=== PATIENT | female | born 1960 ===

== ENCOUNTER 2017-09-05 07:54 | Emergency (ER) | payer OTHER ==
[2017-09-05 08:09] VITALS: RESP 19
[2017-09-05] MEDS ORDERED: Oxycodone/Acetaminophen 5/325 mg Tab PO STA (09:21)
--- NOTE | 2017-09-05 09:22 | ED PDOC ---
HPI: Trauma/Fall - HPI Time Seen by Provider: 09/05/17 09:12 Chief Complaint (Nursing): Trauma Chief Complaint (Provider): Trauma History Per: Patient Additional Complaint(s): 57 year old female presents to the emergency department with a complaint of right-sided head pain, right shoulder pain, and right hip pain after falling backwards down 3 stairs prior to arrival. States she had head injury. Denies fever, chills, or loss of consciousness. Of note, as per nurse, patient is able to ambulate to the bathroom. Past Medical History Reviewed: Historical Data, Nursing Documentation, Vital Signs Vital Signs: Last Vital Signs Temp 97 F L 09/05/17 08:07 Pulse 90 09/05/17 08:07 Resp 19 09/05/17 08:07 BP 135/95 H 09/05/17 08:07 Pulse Ox 100 09/05/17 08:07 - Medical History PMH: No Chronic Diseases - Surgical History Surgical History: No Surg Hx - Family History Family History: States: Unknown Family Hx - Home Medications Home Medications: Ambulatory Orders Medication Instructions Recorded Acetaminophen with Codeine 1 tab PO Q6H PRN #10 tab 09/05/17 [Tylenol with Codeine No. 3 300 mg-30 mg] - Allergies Allergies/Adverse Reactions: Allergies Allergy/AdvReac Type Severity Reaction Status Date / Time Penicillins Allergy ANAPHYLAXIS Verified 09/05/17 08:07 ketorolac [From Toradol] AdvReac ANAPHYLAXIS Verified 09/05/17 08:07 Review of Systems ROS Statement: Except As Marked, All Systems Reviewed And Found Negative (As per HPI, otherwise negative) Constitutional: Negative for: Fever, Chills, Other (loss of consciousness) Respiratory: Positive for: Other (Right posterior rib pain) Musculoskeletal: Positive for: Shoulder Pain (Right), Other (Right hip) Neurological: Positive for: Headache (Right-sided head pain) Physical Exam - Reviewed Nursing Documentation Reviewed: Yes Vital Signs Reviewed: Yes - Physical Exam Appears: Positive for: Well, No Acute Distress Head Exam: Positive for: ATRAUMATIC, NORMAL INSPECTION (Tenderness to the right scalp. No ecchymosis, edema, or hematoma noted. ) Skin: Positive for: Normal Color, Warm, Dry Eye Exam: Positive for: Normal appearance, EOMI, PERRL Neck: Positive for: Normal, Painless ROM, Supple Cardiovascular/Chest: Positive for: Regular Rate, Rhythm Respiratory: Positive for: Normal Breath Sounds Gastrointestinal/Abdominal: Positive for: Normal Exam, Soft. Negative for: Tenderness Extremity: Positive for: Normal ROM (Small ecchymosis noted distal to elbow with full ROM), Tenderness (Tenderness to the right shoulder, right posterior rib, and right hip. ). Negative for: Deformity, Swelling, Other (No edema, ecchymosis, deformity, or hematoma noted elsewhere. ) Neurologic/Psych: Positive for: Alert, Oriented (x3) - ECG O2 Sat by Pulse Oximetry: 100 (RA) Pulse Ox Interpretation: Normal Medical Decision Making Medical Decision Making: Time: 919 Initial Impression: Multi system trauma status post fall Initial Plan: Percocet 5/325 mg PO Right hip x-ray Right shoulder x-ray Right ribs and chest x-ray Head CT Reevaluation Time: [address] FINDINGS: HEMORRHAGE: No intracranial hemorrhage. BRAIN: No mass effect or edema. No atrophy or chronic microvascular ischemic changes. VENTRICLES: Unremarkable. No hydrocephalus. CALVARIUM: Unremarkable. PARANASAL SINUSES: Complete opacification of the right maxillary sinus with thinning of the sinus [place], likely chronic. Left maxillary sinus mucosal thickening. MASTOID AIR CELLS: Unremarkable as visualized. No inflammatory changes. OTHER FINDINGS: None. IMPRESSION: No acute intracranial pathology. Time: 1015 --Chest and right ribs FINDINGS: RIGHT RIBS: No fracture or focal lesion visualized. LUNGS: Clear. PLEURA: No pneumothorax or pleural fluid. CARDIOVASCULAR: Normal sized heart. No pulmonary vascular congestion. OTHER FINDINGS: None. IMPRESSION: Unremarkable radiographs of the chest and right ribs. No right rib fracture. Time: 1016 Shoulder x-ray FINDINGS: BONES: No acute fracture. JOINTS: Unremarkable. SOFT TISSUES: Normal. OTHER FINDINGS: None. IMPRESSION: No demonstrated fracture or dislocation. Time: 1022 --Right hip FINDINGS: BONES: No acute fracture. JOINTS: Normal. SOFT TISSUES: Normal. OTHER FINDINGS: None. IMPRESSION: No demonstrated fracture or dislocation. Time: 1109 --Patient will be discharged home with Rx for Tylenol with Codeine No. 3 Clinical Impression: Head injury and musculoskeletal pain Scribe Attestation: Documented by Mendy Stewart, acting as a scribe for Allie Elena MD. Provider Scribe Attestation: All medical record entries made by the Scribe were at my direction and personally dictated by me. I have reviewed the chart and agree that the record accurately reflects my personal performance of the history, physical exam, medical decision making, and the department course for this patient. I have also personally directed, reviewed, and agree with the discharge instructions and disposition. Disposition - Clinical Impression Clinical Impression: Head injury, Musculoskeletal pain - Patient ED Disposition Is Patient to be Admitted: No Counseled Patient/Family Regarding: Studies Performed, Diagnosis, Need For Followup, Rx Given - Disposition Referrals: [facility] [Outside] Disposition: Routine/Home Disposition Time: 11:09 Condition: IMPROVED Prescriptions: Acetaminophen with Codeine [Tylenol with Codeine No. 3 300 mg-30 mg] 1 tab PO Q6H PRN #10 tab PRN Reason: Pain, Severe (8-10) Instructions: Closed Head Injury, Muscle and Bone Pain (DC) Forms: [email or web address] [facility] (Martiniquais), [facility] ED School/Work Excuse Print Language: YAKUT
[2017-09-05] MEDS ORDERED: Oxycodone/Acetaminophen 5/325 mg Tab ONE (09:36)
--- NOTE | 2017-09-05 10:06 | CT ---
PROCEDURE: CT HEAD WITHOUT CONTRAST. HISTORY: Head injury COMPARISON: None available. TECHNIQUE: Axial computed tomography images were obtained through the head/brain without intravenous contrast. Radiation dose: Total exam DLP = 830 mGy-cm. This CT exam was performed using one or more of the following dose reduction techniques: Automated exposure control, adjustment of the mA and/or kV according to patient size, and/or use of iterative reconstruction technique. FINDINGS: HEMORRHAGE: No intracranial hemorrhage. BRAIN: No mass effect or edema. No atrophy or chronic microvascular ischemic changes. VENTRICLES: Unremarkable. No hydrocephalus. CALVARIUM: Unremarkable. PARANASAL SINUSES: Complete opacification of the right maxillary sinus with thinning of the sinus [place], likely chronic. Left maxillary sinus mucosal thickening. MASTOID AIR CELLS: Unremarkable as visualized. No inflammatory changes. OTHER FINDINGS: None. IMPRESSION: No acute intracranial pathology.
--- NOTE | 2017-09-05 10:17 | RAD ---
PROCEDURE: Radiographs of the Chest and Right Ribs. HISTORY: Fall COMPARISON: None available. TECHNIQUE: Frontal radiograph of the chest and multiple oblique radiographs of the right ribs were obtained. FINDINGS: RIGHT RIBS: No fracture or focal lesion visualized. LUNGS: Clear. PLEURA: No pneumothorax or pleural fluid. CARDIOVASCULAR: Normal sized heart. No pulmonary vascular congestion. OTHER FINDINGS: None. IMPRESSION: Unremarkable radiographs of the chest and right ribs. No right rib fracture.
--- NOTE | 2017-09-05 10:17 | RAD ---
PROCEDURE: Radiographs of the Right Shoulder HISTORY: Fall COMPARISON: No prior. FINDINGS: BONES: No acute fracture. JOINTS: Unremarkable. SOFT TISSUES: Normal. OTHER FINDINGS: None. IMPRESSION: No demonstrated fracture or dislocation.
--- NOTE | 2017-09-05 10:24 | RAD ---
PROCEDURE: Right Hip Radiographs. HISTORY: Fall COMPARISON: None. FINDINGS: BONES: No acute fracture. JOINTS: Normal. SOFT TISSUES: Normal. OTHER FINDINGS: None. IMPRESSION: No demonstrated fracture or dislocation.
[2017-09-05 11:19] VITALS: BP 132/90; PULSE 80; TEMP 98
[2017-09-07 14:07] VITALS: O2SAT 100
== END 2017-09-05 11:24 | disposition home or self-care (01) ==
LOC: H.ER 07:54
DX: S09.90XA Unspecified injury of head, initial encounter (principal); M79.1 Myalgia; M25.551 Pain in right hip; W10.9XXA Fall (on) (from) unspecified stairs and steps, initial encounter; Y92.89 Other specified places as the place of occurrence of the external cause; Z88.0 Allergy status to penicillin